=== PATIENT | male | born 1930 | race African-American/Black ===

== ENCOUNTER 2016-05-22 10:15 | Inpatient (IN) | payer MEDICARE, BC ==
[~2016-05-22] VITALS: Ht 167.6 cm; Wt 64.9 kg
[~2016-05-22 10:15] MED LIST: BECL8.7A6 INH; PROAIR INH; T3 PO; ZOLP10TA2 PO
[2016-05-22] MEDS ORDERED: LISI10TA5 PO (11:12)
[2016-05-22] MEDS ORDERED: METHYLPREDNISOLONE SOD SUCC 125 MG/2 ML VIAL IV STA (11:24)
[2016-05-22] MEDS ORDERED: DIPHENHYDRAMINE 50MG/ML VIAL IV ONE (11:30)
[2016-05-22] MEDS ORDERED: FAMOTIDINE 20MG/2ML VIAL IV ONE (11:30)
[2016-05-22 12:07] LABS: BASOPHILS % 0.4 % (0.0-2.0); EOSINOPHILS % 5.3 % (0.0-5.0); HEMATOCRIT. 24.6 % (42.0-52.0); HEMOGLOBIN. 8.3 g/dL (14.0-18.0); LYMPHOCYTES % 20.3 % (20.0-50.0); MEAN CORPUSCULAR HEMOGLOBIN 29.9 pg (28.0-32.0); MEAN CORPUSCULAR HGB CONC 33.6 g/dL (31.0-37.0); MEAN CORPUSCULAR VOLUME 88.9 fL (80.0-94.0); MEAN PLATELET VOLUME 6.4 fl (7.4-10.4); MONOCYTES % 10.2 % (2.0-8.0); NEUTROPHILS % 63.8 % (40.0-76.0); PLATELET 383 x1000/uL (130-400); RED BLOOD CELL COUNT 2.77 mill/uL (4.7-6.1); RED CELL DISTRIBUTION WIDTH 14.9 % (11.6-14.6); WHITE BLOOD COUNT 5.8 x1000/uL (4.5-11.0)
[2016-05-22 12:12] LABS: CHLORIDE 90 mEq/L (98-107); INDEX HEMOLYSI 1 (1-3); INDEX ICTERIC 1 (1-4); INDEX LIPEMIC 1 (1-3)
[2016-05-22 12:15] LABS: PROTHROMBIN TIME 10.6 sec
[2016-05-22 12:18] LABS: ANION GAP 14; CALCIUM 9.1 mg/dL (8.5-10.1); CARBON DIOXIDE 28 mEq/L (21-32); UREA NITROGEN BLOOD 15 mg/dL (7-21); eGFR > 60 mL/min (>60)
[2016-05-22 18:15] VITALS: BP 142/92
[2016-05-22] MEDS ORDERED: [UNRECOGNIZED DRUG - OTHER] (18:33)
[2016-05-22] MEDS ORDERED: [UNRECOGNIZED DRUG - OTHER] PO (18:34)
[2016-05-22] MEDS ORDERED: MAGNESIUM/ALUMINUM HYDROXIDE/SIMETHICONE 30ML UDC PO PRN (18:45)
[2016-05-22] MEDS ORDERED: ACETAMINOPHEN 325MG TABLET PO PRN (18:45)
[2016-05-22] MEDS ORDERED: CLONIDINE 0.1MG TABLET PO PRN (18:45)
[2016-05-22] MEDS ORDERED: ONDANSETRON HCL 4MG/2ML VIAL IV PRN (18:45)
[2016-05-22] MEDS ORDERED: DIPHENHYDRAMINE 50MG/ML VIAL IV PRN (18:45)
[2016-05-22 19:04] VITALS: BP 142/92
[2016-05-22 20:00] VITALS: BP 127/77
[2016-05-22] MEDS ORDERED: TRAMADOL 50MG TABLET PO PRN (20:15)
[2016-05-22] MEDS ORDERED: PROMETHAZINE/DEXTROMETHORPHAN 6.25-15MG/5ML BOTTLE 120ML PO PRN (20:15)
[2016-05-22] MEDS ORDERED: ZOLPIDEM TARTRATE 5MG TABLET PO ONE (20:15)
[2016-05-22] MEDS ORDERED: ALBUTEROL (0.083%) 2.5MG/3ML NEB HHN PRN (20:30)
[2016-05-22] MEDS ORDERED: ZOLPIDEM TARTRATE 5MG TABLET PO PRN (20:30)
[2016-05-22] MEDS: FAMOTIDINE 20MG/2ML VIAL IV SCH (21:42)
[2016-05-22] MEDS: SODIUM CHLORIDE 0.9% INJ 3ML FLUSH IVF SCH (21:42)
[2016-05-22] MEDS: METHYLPREDNISOLONE SOD SUCC 125 MG/2 ML VIAL IV SCH (21:42)
[2016-05-22] MEDS: ACETAMINOPHEN WITH CODEINE 300/30MG TABLET PO PRN (22:57)
[2016-05-23] VITALS: BP 114/76
[2016-05-23 04:00] VITALS: BP 133/80
[2016-05-23] MEDS: METHYLPREDNISOLONE SOD SUCC 125 MG/2 ML VIAL IV SCH (05:53)
[2016-05-23] MEDS: SODIUM CHLORIDE 0.9% INJ 3ML FLUSH IVF SCH (05:54)
[2016-05-23 07:56] VITALS: BP 136/79
[2016-05-23] MEDS ORDERED: AMLODIPINE 5MG TABLET PO SCH (09:00)
[2016-05-23] MEDS: FAMOTIDINE 20MG/2ML VIAL IV SCH (09:05)
[2016-05-23] MEDS: ACETAMINOPHEN WITH CODEINE 300/30MG TABLET PO PRN (09:08)
[2016-05-23 12:00] VITALS: BP 121/78
== END 2016-05-23 15:30 | disposition home or self-care (01) | DRG 916 ==
LOC: ER 11:49 → 6WST 13:31
PROVIDERS: ADMIT Internal Medicine; ATTEND Internal Medicine
DX: T78.3XXA Angioneurotic edema, initial encounter (principal); E87.1 Hypo-osmolality and hyponatremia; C85.10 Unspecified B-cell lymphoma, unspecified site; I10 Essential (primary) hypertension; D64.9 Anemia, unspecified; T46.4X5A Adverse effect of angiotensin-converting-enzyme inhibitors, initial encounter; Y92.89 Other specified places as the place of occurrence of the external cause; Z82.49 Family history of ischemic heart disease and other diseases of the circulatory system; Z79.899 Other long term (current) drug therapy; Z87.11 Personal history of peptic ulcer disease
CPT/HCPCS: 36415; 71010; 80048; 85025; 85610; 85730; 93005; 96374; 96375; 99285; J1200; J2930; J3490

== ENCOUNTER 2016-10-17 08:48 | Inpatient (IN) | payer MEDICARE, BC ==
[~2016-10-17] VITALS: Ht 160 cm; Wt 63.5 kg
[~2016-10-17 08:48] MED LIST changes: +ACET-3161 PO; +AMLO5TAB4 PO; -BECL8.7A6 INH; +FERR-63 PO; +MULT-1146 PO; -PROAIR INH; -T3 PO; -ZOLP10TA2 PO; +[UNRECOGNIZED DRUG - OTHER] PO
[2016-10-17] MEDS ORDERED: ONDANSETRON HCL 4MG/2ML VIAL IV STA (09:25)
[2016-10-17] MEDS ORDERED: SODIUM CHLORIDE 0.9% 1,000 ML IV ONE (09:25)
[2016-10-17] MEDS ORDERED: FAMOTIDINE 20MG/2ML VIAL IV ONE (09:30)
[2016-10-17 09:49] LABS: HEMATOCRIT. 33.1 % (42.0-52.0); HEMOGLOBIN. 10.4 g/dL (14.0-18.0); MEAN CORPUSCULAR HEMOGLOBIN 26.7 pg (28.0-32.0); MEAN CORPUSCULAR VOLUME 85.3 fL (80.0-94.0); MEAN PLATELET VOLUME 8.3 fl (7.4-10.4); PLATELET 536 x1000/uL (130-400); RED BLOOD CELL COUNT 3.87 mill/uL (4.7-6.1); RED CELL DISTRIBUTION WIDTH 17.3 % (11.6-14.6)
[2016-10-17 10:01] LABS: CARBON DIOXIDE 33 mEq/L (21-32); CHLORIDE 99 mEq/L (98-107)
[2016-10-17 10:02] LABS: INR 1.2; PROTHROMBIN TIME 12.8 sec
[2016-10-17] MEDS ORDERED: SODIUM CHLORIDE 0.9% 10ML VIAL ONE (10:23)
[2016-10-17 11:01] LABS: PLATELET ESTIMATE INCREASED
[2016-10-17] MEDS ORDERED: SODIUM CHLORIDE 0.45% 1,000 ML IV SCH (15:15)
[2016-10-17] MEDS ORDERED: MIDAZOLAM HCL 2 MG/2 ML VIAL IV PRN (17:12)
[2016-10-17] MEDS ORDERED: FENTANYL CITRATE/PF 50MCG/ML 2ML VIAL ONE (17:13)
[2016-10-17] MEDS ORDERED: MIDAZOLAM HCL 5 MG/5 ML VIAL ONE ×2 (17:13→17:14)
[2016-10-17] MEDS ORDERED: SIMETHICONE 40 MG/0.6 ML 30ML ONE (17:13)
[2016-10-17 20:00] VITALS: BP 121/83
[2016-10-17] MEDS ORDERED: CLONIDINE 0.1MG TABLET PO PRN (20:45)
[2016-10-17] MEDS ORDERED: IPRATROPIUM/ALBUTEROL 0.5-3(2.5)MG/3ML NEB INH PRN (20:45)
[2016-10-17] MEDS ORDERED: ONDANSETRON HCL 4MG/2ML VIAL IV PRN (20:45)
[2016-10-17] MEDS ORDERED: DIPHENHYDRAMINE 50MG/ML VIAL IV PRN (20:45)
[2016-10-17] MEDS ORDERED: MAGNESIUM/ALUMINUM HYDROXIDE/SIMETHICONE 30ML UDC PO PRN (20:45)
[2016-10-17] MEDS ORDERED: ACETAMINOPHEN WITH CODEINE 300/30MG TABLET PO PRN (20:45)
[2016-10-17] MEDS ORDERED: PANTOPRAZOLE SODIUM 40 MG/VIAL IV SCH ×2 (21:00)
[2016-10-17] MEDS ORDERED: DIATR MEGLU/DIATRIZOATE SOLN 30ML PO SCH (21:28)
[2016-10-17] MEDS: SUCRALFATE 1G TABLET PO SCH (22:20)
[2016-10-17] MEDS: SODIUM CHLORIDE 0.9% 1,000 ML IV SCH (22:20)
[2016-10-18 04:00] VITALS: BP 114/80
[2016-10-18 06:25] LABS: HEMATOCRIT. 28.6 % (42.0-52.0); HEMOGLOBIN. 8.9 g/dL (14.0-18.0); MEAN CORPUSCULAR HEMOGLOBIN 26.8 pg (28.0-32.0); MEAN CORPUSCULAR VOLUME 85.6 fL (80.0-94.0); MEAN PLATELET VOLUME 8.3 fl (7.4-10.4); PLATELET 395 x1000/uL (130-400); RED BLOOD CELL COUNT 3.34 mill/uL (4.7-6.1); RED CELL DISTRIBUTION WIDTH 17.2 % (11.6-14.6)
[2016-10-18] MEDS: SUCRALFATE 1G TABLET PO SCH ×4 (06:35→20:20)
[2016-10-18 08:00] VITALS: BP 111/78
[2016-10-18] MEDS: FERROUS SULFATE 325MG TABLET PO SCH (09:21)
[2016-10-18] MEDS: PANTOPRAZOLE SODIUM 40 MG/VIAL IV SCH (09:21)
[2016-10-18] MEDS: AMLODIPINE 5MG TABLET PO SCH (09:22)
[2016-10-18] MEDS ORDERED: DIATR MEGLU/DIATRIZOATE SOLN 30ML PO SCH (11:00)
[2016-10-18] MEDS ORDERED: IOHEXOL-300 100 ML BOTTLE ONE (13:59)
[2016-10-18] MEDS ORDERED: SODIUM CHLORIDE 0.9% 10ML VIAL ONE (13:59)
[2016-10-18] MEDS: SODIUM CHLORIDE 0.9% 1,000 ML IV SCH (18:05)
[2016-10-18] MEDS ORDERED: SORBITOL 70% SOLN 30ML PO NR (19:30)
[2016-10-18] MEDS ORDERED: NA PHOS,M-B/NA PHOS,DI-BA ENEMA 118ML PR NR (19:30)
[2016-10-18 20:00] VITALS: BP 111/70
[2016-10-18 20:43] LABS: PLATELET ESTIMATE NORMAL
[2016-10-19] VITALS (7 sets, daily range): BP systolic 95–113; BP diastolic 61–71
[2016-10-19 02:34] LABS: CLARITY URINE CLOUDY (CLEAR); COLOR URINE DARK YELLOW (YELLOW); GLUCOSE URINE NEGATIVE (NEGATIVE); KETONES URINE NEGATIVE (NEGATIVE); LEUKOCYTE ESTERASE URINE 1+ (NEGATIVE); NITRITE URINE NEGATIVE (NEGATIVE); OCCULT BLOOD URINE 2+ (NEGATIVE); PROTEIN URINE 1+ (NEGATIVE); SPECIFIC GRAVITY URINE 1.033 (1.005-1.030)
[2016-10-19] MEDS: SUCRALFATE 1G TABLET PO SCH ×3 (05:46→17:04)
[2016-10-19] MEDS: FERROUS SULFATE 325MG TABLET PO SCH (08:55)
[2016-10-19] MEDS: PANTOPRAZOLE SODIUM 40 MG/VIAL IV SCH (08:55)
[2016-10-19] MEDS: AMLODIPINE 5MG TABLET PO SCH (08:56)
[2016-10-19] MEDS: POLYETHYLENE GLYCOL 3350 (17GM) 1 DOSE PACK PO SCH (08:56)
[2016-10-19 12:41] LABS: BASOPHILS % 0.3 % (0.0-2.0); EOSINOPHILS % 1.3 % (0.0-5.0); HEMATOCRIT. 26.2 % (42.0-52.0); HEMOGLOBIN. 8.2 g/dL (14.0-18.0); LYMPHOCYTES % 10.3 % (20.0-50.0); MEAN CORPUSCULAR HEMOGLOBIN 26.6 pg (28.0-32.0); MEAN CORPUSCULAR VOLUME 85.1 fL (80.0-94.0); MEAN PLATELET VOLUME 8.4 fl (7.4-10.4); MONOCYTES % 5.5 % (2.0-8.0); NEUTROPHILS % 82.6 % (40.0-76.0); PLATELET 423 x1000/uL (130-400); RED BLOOD CELL COUNT 3.08 mill/uL (4.7-6.1); RED CELL DISTRIBUTION WIDTH 17.5 % (11.6-14.6)
[2016-10-19 13:05] LABS: CARBON DIOXIDE 29 mEq/L (21-32); CHLORIDE 102 mEq/L (98-107); PHOSPHORUS 2.9 mg/dL (2.5-4.9)
[2016-10-19] MEDS ORDERED: LIDOCAINE HCL 1% 20ML VIAL (Pyxis) INJ ONE (14:26)
[2016-10-19] MEDS ORDERED: SODIUM BICARBONATE 4% (2.4MEQ) 5ML VIAL IV ONE (14:26)
[2016-10-19] MEDS: SODIUM CHLORIDE 0.9% 1,000 ML IV SCH (14:48)
[2016-10-19] MEDS: SUCRALFATE 1 G/10 ML UDC PO SCH (21:32)
[2016-10-19] MEDS: ACETAMINOPHEN 325MG TABLET PO PRN (23:44)
[2016-10-20] VITALS (7 sets, daily range): BP systolic 90–124; BP diastolic 61–80
[2016-10-20] MEDS: SUCRALFATE 1 G/10 ML UDC PO SCH ×4 (06:35→21:34)
[2016-10-20] MEDS: PANTOPRAZOLE SODIUM 40 MG/VIAL IV SCH (10:02)
[2016-10-20] MEDS: FERROUS SULFATE 325MG TABLET PO SCH (10:02)
[2016-10-20] MEDS: AMLODIPINE 5MG TABLET PO SCH (10:03)
[2016-10-20] MEDS: POLYETHYLENE GLYCOL 3350 (17GM) 1 DOSE PACK PO SCH (10:03)
[2016-10-20 13:22] LABS: BASOPHILS % 0.1 % (0.0-2.0); EOSINOPHILS % 0.5 % (0.0-5.0); HEMATOCRIT. 31.2 % (42.0-52.0); HEMOGLOBIN. 9.9 g/dL (14.0-18.0); LYMPHOCYTES % 9.8 % (20.0-50.0); MEAN CORPUSCULAR HEMOGLOBIN 27.2 pg (28.0-32.0); MEAN CORPUSCULAR VOLUME 85.6 fL (80.0-94.0); MONOCYTES % 5.7 % (2.0-8.0); NEUTROPHILS % 83.9 % (40.0-76.0); PLATELET 404 x1000/uL (130-400); RED BLOOD CELL COUNT 3.65 mill/uL (4.7-6.1); RED CELL DISTRIBUTION WIDTH 16.7 % (11.6-14.6)
[2016-10-20 13:56] LABS: TOTAL IRON BINDING CAPACITY 197 ug/dL (250-450)
[2016-10-20] MEDS ORDERED: ALPRAZOLAM 0.25 MG TABLET PO PRN (18:30)
[2016-10-21] VITALS (28 sets, daily range): BP systolic -17–165; BP diastolic -18–88
[2016-10-21] MEDS: SUCRALFATE 1 G/10 ML UDC PO SCH ×4 (05:57→22:05)
[2016-10-21 06:05] LABS: INR 1.2; PROTHROMBIN TIME 12.8 sec
[2016-10-21 06:09] LABS: BASOPHILS % 0.2 % (0.0-2.0); EOSINOPHILS % 0.5 % (0.0-5.0); HEMATOCRIT. 28.5 % (42.0-52.0); HEMOGLOBIN. 8.9 g/dL (14.0-18.0); LYMPHOCYTES % 10.6 % (20.0-50.0); MEAN CORPUSCULAR HEMOGLOBIN 26.6 pg (28.0-32.0); MEAN CORPUSCULAR VOLUME 85.3 fL (80.0-94.0); MEAN PLATELET VOLUME 8.4 fl (7.4-10.4); MONOCYTES % 6.7 % (2.0-8.0); PLATELET 421 x1000/uL (130-400); RED BLOOD CELL COUNT 3.35 mill/uL (4.7-6.1); RED CELL DISTRIBUTION WIDTH 16.8 % (11.6-14.6)
[2016-10-21 06:35] LABS: CHLORIDE 105 mEq/L (98-107)
[2016-10-21 06:49] LABS: CARBON DIOXIDE 33 mEq/L (21-32)
[2016-10-21] MEDS ORDERED: FLUCONAZOLE 100MG/50ML PREMIX IV SCH (09:00)
[2016-10-21] MEDS: AMLODIPINE 5MG TABLET PO SCH (09:00)
[2016-10-21] MEDS: POLYETHYLENE GLYCOL 3350 (17GM) 1 DOSE PACK PO SCH (10:29)
[2016-10-21] MEDS: FERROUS SULFATE 325MG TABLET PO SCH (10:29)
[2016-10-21] MEDS: PANTOPRAZOLE SODIUM 40 MG/VIAL IV SCH (10:29)
[2016-10-21] MEDS ORDERED: POTASSIUM CHLORIDE INJ 40 MEQ in DEXT 5% WATER 500 ML IV NR (11:00)
[2016-10-21] MEDS ORDERED: FLUCONAZOLE 200 MG/100ML BAG 100 ML IV SCH (12:00)
[2016-10-21] MEDS ORDERED: SKIN ADHESIVE 0.7 GM EA TOP ONE (12:03)
[2016-10-21] MEDS ORDERED: BUPIVACAINE/EPINEPH/PF 0.25%/0.0005 10ML ONE (12:04)
[2016-10-21] MEDS ORDERED: NORMAL SALINE 0.9% 10 ML SYR ONE (12:04)
[2016-10-21] MEDS ORDERED: BACITRACIN 50,000 UNITS/VIAL ONE (12:04)
[2016-10-21] MEDS ORDERED: ETOMIDATE 2MG/ML 10ML VIAL IV ONE ×2 (13:33→15:37)
[2016-10-21] MEDS ORDERED: ONDANSETRON HCL 4MG/2ML VIAL ONE (13:34)
[2016-10-21] MEDS ORDERED: FENTANYL CITRATE/PF 50MCG/ML 2ML VIAL IV PRN (13:45)
[2016-10-21] MEDS ORDERED: ATROPINE SULFATE 0.4MG/ML VIAL IV PRN (13:45)
[2016-10-21] MEDS ORDERED: HYDROMORPHONE HCL/PF 2MG/ML CPJ IV PRN (13:45)
[2016-10-21] MEDS ORDERED: ALBUMIN HUMAN 12.5G/250ML (5%) IV ONE (15:08)
[2016-10-21] MEDS ORDERED: DEXAMETHASONE 4MG/ML 1ML VIAL ONE (15:36)
[2016-10-21] MEDS ORDERED: ROCURONIUM BROMIDE 10MG/ML VIAL 5ML IV ONE (15:36)
[2016-10-21] MEDS ORDERED: CEFAZOLIN SODIUM 1000MG/VIAL ONE (15:36)
[2016-10-21] MEDS ORDERED: LIDOCAINE HCL 1% 20ML VIAL (Pyxis) INJ ONE (15:36)
[2016-10-21 17:08] LABS: BG BASE EXCESS 3.9 mmol/L (-2.0-2.0); BG CARBOXYHEMOGLOBIN 0.3 % (0.5-1.5); BG DEOXYHEMOGLOBIN 1.1 % (0.0-5.0); BG FRACTION INSPIRED OXYGEN 48; BG HCO3 ACT 28.8 mmol/L (22.0-26.0); BG METHEMOGLOBIN 0.2 % (0.0-1.5); BG OXYGEN SATURATION 98.9 % (92.0-98.5); BG OXYHEMOGLOBIN 98.4 % (94.0-97.0); BG PCO2 45.1 mmHg (35.0-45.0); BG PH 7.423 (7.350-7.450); BG PO2 189.2 mmHg (75.0-100.0); BG SAMPLE SITE A-LINE; BG TOTAL HEMOGLOBIN 10.5 g/dL (12.0-18.0); BG VENT MODE MASK - SIMPLE
[2016-10-21] MEDS: DEXT 5%/0.45% NACL 1000ML 1,000 ML IV SCH (18:34)
[2016-10-22] VITALS (31 sets, daily range): BP systolic 87–126; BP diastolic 61–82
[2016-10-22 06:13] LABS: BASOPHILS % 0.1 % (0.0-2.0); HEMATOCRIT. 33.2 % (42.0-52.0); HEMOGLOBIN. 10.3 g/dL (14.0-18.0); LYMPHOCYTES % 7.1 % (20.0-50.0); MEAN CORPUSCULAR HEMOGLOBIN 27.1 pg (28.0-32.0); MEAN PLATELET VOLUME 8.2 fl (7.4-10.4); MONOCYTES % 7.1 % (2.0-8.0); NEUTROPHILS % 85.7 % (40.0-76.0); PLATELET 375 x1000/uL (130-400); RED BLOOD CELL COUNT 3.82 mill/uL (4.7-6.1); RED CELL DISTRIBUTION WIDTH 17.1 % (11.6-14.6)
[2016-10-22 07:17] LABS: CARBON DIOXIDE 34 mEq/L (21-32); CHLORIDE 104 mEq/L (98-107)
[2016-10-22] MEDS: SUCRALFATE 1 G/10 ML UDC PO SCH ×4 (08:28→20:17)
[2016-10-22] MEDS: PANTOPRAZOLE SODIUM 40 MG/VIAL IV SCH (08:28)
[2016-10-22] MEDS: POLYETHYLENE GLYCOL 3350 (17GM) 1 DOSE PACK PO SCH (08:28)
[2016-10-22] MEDS: FERROUS SULFATE 325MG TABLET PO SCH (08:28)
[2016-10-22] MEDS: DEXT 5%/0.45% NACL 1000ML 1,000 ML IV SCH (08:29)
[2016-10-22] MEDS: AMLODIPINE 5MG TABLET PO SCH (09:00)
[2016-10-22] MEDS: FLUCONAZOLE 100 MG/50ML BAG 50 ML IV SCH (09:21)
[2016-10-23] VITALS (21 sets, daily range): BP systolic 93–126; BP diastolic 52–74
[2016-10-23] MEDS: DEXT 5%/0.45% NACL 1000ML 1,000 ML IV SCH ×2 (01:47→20:53)
[2016-10-23 06:18] LABS: CARBON DIOXIDE 31 mEq/L (21-32); CHLORIDE 105 mEq/L (98-107)
[2016-10-23 07:30] LABS: BASOPHILS % 0.2 % (0.0-2.0); EOSINOPHILS % 0.4 % (0.0-5.0); HEMATOCRIT. 29.4 % (42.0-52.0); HEMOGLOBIN. 9.1 g/dL (14.0-18.0); LYMPHOCYTES % 13.3 % (20.0-50.0); MEAN CORPUSCULAR HEMOGLOBIN 27.1 pg (28.0-32.0); MEAN CORPUSCULAR VOLUME 87.1 fL (80.0-94.0); MEAN PLATELET VOLUME 8.5 fl (7.4-10.4); MONOCYTES % 7.1 % (2.0-8.0); PLATELET 356 x1000/uL (130-400); RED BLOOD CELL COUNT 3.37 mill/uL (4.7-6.1); RED CELL DISTRIBUTION WIDTH 17.1 % (11.6-14.6)
[2016-10-23] MEDS: AMLODIPINE 5MG TABLET PO SCH (08:03)
[2016-10-23] MEDS: FERROUS SULFATE 325MG TABLET PO SCH (08:03)
[2016-10-23] MEDS: PANTOPRAZOLE SODIUM 40 MG/VIAL IV SCH (08:03)
[2016-10-23] MEDS: POLYETHYLENE GLYCOL 3350 (17GM) 1 DOSE PACK PO SCH (08:03)
[2016-10-23] MEDS: SUCRALFATE 1 G/10 ML UDC PO SCH ×4 (08:03→20:51)
[2016-10-23] MEDS: FLUCONAZOLE 100 MG/50ML BAG 50 ML IV SCH (08:05)
[2016-10-23] MEDS ORDERED: POTASSIUM CHLORIDE 20MEQ/PACKET PO SCH (09:00)
[2016-10-23] MEDS: ACETAMINOPHEN 325MG TABLET PO PRN (10:33)
[2016-10-23] MEDS ORDERED: ACETAMINOPHEN WITH CODEINE 300/30MG TABLET PO PRN (15:37)
[2016-10-24] VITALS (12 sets, daily range): BP systolic 107–153; BP diastolic 59–82
[2016-10-24] MEDS: SUCRALFATE 1 G/10 ML UDC PO SCH ×4 (06:10→22:03)
[2016-10-24] MEDS: FLUCONAZOLE 100 MG/50ML BAG 50 ML IV SCH (08:05)
[2016-10-24] MEDS: AMLODIPINE 5MG TABLET PO SCH (08:05)
[2016-10-24] MEDS: PANTOPRAZOLE SODIUM 40 MG/VIAL IV SCH (08:05)
[2016-10-24] MEDS: POLYETHYLENE GLYCOL 3350 (17GM) 1 DOSE PACK PO SCH (08:06)
[2016-10-24] MEDS: FERROUS SULFATE 325MG TABLET PO SCH (08:06)
[2016-10-24] MEDS: DEXT 5%/0.45% NACL 1000ML 1,000 ML IV SCH (11:23)
[2016-10-24] MEDS: OMEPRAZOLE 20MG CAPSULE EXTENDED RELEASE PO SCH (22:03)
[2016-10-25] VITALS (9 sets, daily range): BP systolic 101–129; BP diastolic 62–75
[2016-10-25] MEDS: OMEPRAZOLE 20MG CAPSULE EXTENDED RELEASE PO SCH (06:50)
[2016-10-25] MEDS: SUCRALFATE 1 G/10 ML UDC PO SCH ×2 (06:50→13:44)
[2016-10-25] MEDS: AMLODIPINE 5MG TABLET PO SCH (08:31)
[2016-10-25] MEDS: FERROUS SULFATE 325MG TABLET PO SCH (08:31)
[2016-10-25] MEDS: POLYETHYLENE GLYCOL 3350 (17GM) 1 DOSE PACK PO SCH (08:31)
[2016-10-25] MEDS ORDERED: FLUCONAZOLE 100MG TABLET PO SCH (09:00)
== END 2016-10-25 14:23 | DRG 981 ==
LOC: ER 08:48 → 5WST 11:00 → EDBEDREQ 11:02 → EDBEDREQTM 11:02 → ENRESERV 16:49 → ER 17:22 → CVICU 10-21 16:43 → 3WST 10-23 18:11
PROVIDERS: ADMIT Internal Medicine; ATTEND Internal Medicine
PROC: 0DB58ZX Excision of Esophagus, Via Natural or Artificial Opening Endoscopic, Diagnostic (ICD-10-PCS; principal; 2016-10-17 17:00)
PROC: 30233N1 Transfusion of Nonautologous Red Blood Cells into Peripheral Vein, Percutaneous Approach (ICD-10-PCS; 2016-10-19)
PROC: 0J983ZX Drainage of Abdomen Subcutaneous Tissue and Fascia, Percutaneous Approach, Diagnostic (ICD-10-PCS; 2016-10-19)
PROC: 0W9B3ZX Drainage of Left Pleural Cavity, Percutaneous Approach, Diagnostic (ICD-10-PCS; 2016-10-19)
PROC: 0BJL4ZZ Inspection of Left Lung, Percutaneous Endoscopic Approach (ICD-10-PCS; 2016-10-21)
PROC: 3E0L3GC Introduction of Other Therapeutic Substance into Pleural Cavity, Percutaneous Approach (ICD-10-PCS; 2016-10-21)
PROC: 0W9B30Z Drainage of Left Pleural Cavity with Drainage Device, Percutaneous Approach (ICD-10-PCS; 2016-10-21)
DX: K22.11 Ulcer of esophagus with bleeding (principal); E43 Unspecified severe protein-calorie malnutrition; J90 Pleural effusion, not elsewhere classified; C85.10 Unspecified B-cell lymphoma, unspecified site; C34.92 Malignant neoplasm of unspecified part of left bronchus or lung; B37.81 Candidal esophagitis; D63.8 Anemia in other chronic diseases classified elsewhere; I10 Essential (primary) hypertension; K56.41 Fecal impaction; J44.9 Chronic obstructive pulmonary disease, unspecified; Z60.2 Problems related to living alone; N13.9 Obstructive and reflux uropathy, unspecified; Z87.11 Personal history of peptic ulcer disease; Z92.21 Personal history of antineoplastic chemotherapy; Z79.899 Other long term (current) drug therapy; Z85.118 Personal history of other malignant neoplasm of bronchus and lung; Z68.24 Body mass index [BMI] 24.0-24.9, adult
CPT/HCPCS: 20611; 32555; 36415; 36600; 71010; 74177; 80048; 80053; 81001; 82375; 82805; 82945; 82962; 83540; 83550; 83615; 83690; 83735; 84100; 84157; 85025; 85610; 86850; 86900; 86920; 87070; 87075; 87086; 87116; 87205; 88108; 88305; 88312; 89050; 93005; 96361; 96374; 96375; 97162; 97530; 99285; A4216; A6261; A7042; C1729; C1751; C1769; C9113; J0171; J0690; J1100; J1170; J1450; J2250; J2405; J3010; J3480; J3490; J7030; J7040; J7050; J7060; P9016; P9041; Q9963; Q9967; A4315

== ENCOUNTER 2016-12-08 17:50 | Inpatient (IN) | payer MEDICARE, BC ==
[~2016-12-08] VITALS: Ht 165.1 cm; Wt 69.4 kg
[~2016-12-08 17:50] MED LIST changes: +ALBU2.5V13 IH; +ATROV IH; +CLON0.1T PO; +FLUC100T42 PO; +NALOXONE; +OMEP20CA10 PO; +SUCR1ORA PO; +[UNRECOGNIZED DRUG - OTHER]
[2016-12-08] MEDS ORDERED: SODIUM CHLORIDE 0.9% 500 ML IV ONE (19:03)
[2016-12-08 19:38] LABS: MEAN CORPUSCULAR HEMOGLOBIN 29.9 pg (28.0-32.0); MEAN CORPUSCULAR VOLUME 90.7 fL (80.0-94.0); MEAN PLATELET VOLUME 9.3 fl (7.4-10.4); PLATELET 66 x1000/uL (130-400); RED CELL DISTRIBUTION WIDTH 14.9 % (11.6-14.6)
[2016-12-08 19:40] LABS: INR 1.5
[2016-12-08 19:42] LABS: CARBON DIOXIDE 32 mEq/L (21-32); CHLORIDE 99 mEq/L (98-107)
[2016-12-08 19:49] LABS: TROPONIN I < 0.02 ng/mL (0.00-0.04)
[2016-12-08 19:54] LABS: HEMOGLOBIN. 6.3 g/dL (14.0-18.0)
[2016-12-08 20:31] LABS: PLATELET ESTIMATE DECREASED
[2016-12-08 20:48] LABS: CLARITY URINE CLOUDY (CLEAR); COLOR URINE DARK YELLOW (YELLOW); GLUCOSE URINE NEGATIVE (NEGATIVE); KETONES URINE NEGATIVE (NEGATIVE); LEUKOCYTE ESTERASE URINE 3+ (NEGATIVE); NITRITE URINE NEGATIVE (NEGATIVE); OCCULT BLOOD URINE 1+ (NEGATIVE); PROTEIN URINE 1+ (NEGATIVE); SPECIFIC GRAVITY URINE 1.015 (1.005-1.030)
[2016-12-08] MEDS ORDERED: CEFTRIAXONE 1 G PREMIX 50 ML IV ONE (21:00)
[2016-12-09] VITALS (8 sets, daily range): BP systolic 109–126; BP diastolic 69–76
[2016-12-09 03:31] LABS: HEMATOCRIT 22.9 % (42.0-52.0); HEMOGLOBIN 7.5 g/dL (14.0-18.0); MEAN CORPUSCULAR HEMOGLOBIN 29.5 pg (28.0-32.0); MEAN CORPUSCULAR VOLUME 89.6 fL (80.0-94.0); PLATELET 60 x1000/uL (130-400); RED BLOOD CELL COUNT 2.56 mill/uL (4.7-6.1); RED CELL DISTRIBUTION WIDTH 16.2 % (11.6-14.6)
[2016-12-09 03:47] LABS: CARBON DIOXIDE 30 mEq/L (21-32); CHLORIDE 99 mEq/L (98-107); TROPONIN I < 0.02 ng/mL (0.00-0.04)
[2016-12-09] MEDS: PANTOPRAZOLE SODIUM 40 MG/VIAL IV SCH (18:17)
[2016-12-09] MEDS: CEFTRIAXONE 1 G PREMIX 50 ML IV SCH (22:19)
[2016-12-10] VITALS: BP 111/57
[2016-12-10 04:00] VITALS: BP 114/69
[2016-12-10 07:43] VITALS: BP 117/66
[2016-12-10] MEDS: PANTOPRAZOLE SODIUM 40 MG/VIAL IV SCH (08:38)
[2016-12-10] MEDS ORDERED: SIMETHICONE 40 MG/0.6 ML 30ML ONE (09:07)
[2016-12-10] MEDS ORDERED: SODIUM CHLORIDE 0.9% 10ML VIAL ONE (09:07)
[2016-12-10 09:34] LABS: HEMATOCRIT 27.6 % (42.0-52.0); HEMOGLOBIN 9.1 g/dL (14.0-18.0)
[2016-12-10] MEDS ORDERED: HYDR-523 PO (11:58)
[2016-12-10 12:03] VITALS: BP 132/72
[2016-12-10 15:35] VITALS: BP 107/59
[2016-12-10] MEDS ORDERED: NA PHOS,M-B/NA PHOS,DI-BA ENEMA 118ML PR PRN (20:00)
[2016-12-10] MEDS ORDERED: MAGNESIUM/ALUMINUM HYDROXIDE/SIMETHICONE 30ML UDC PO PRN (20:00)
[2016-12-10] MEDS ORDERED: HYDROCODONE/ACETAMINOPHEN 5/325MG TABLET PO PRN (20:00)
[2016-12-10] MEDS ORDERED: ACETAMINOPHEN 325MG TABLET PO PRN (20:00)
[2016-12-10] MEDS ORDERED: ACETAMINOPHEN 650MG SUPP PR PRN (20:00)
[2016-12-10] MEDS ORDERED: ACETAMINOPHEN 650MG/20.3ML UDC GT PRN (20:00)
[2016-12-10] MEDS ORDERED: IPRATROPIUM/ALBUTEROL 0.5-3(2.5)MG/3ML NEB INH PRN (20:00)
[2016-12-10] MEDS ORDERED: CLONIDINE 0.1MG TABLET PO PRN (20:00)
[2016-12-10] MEDS ORDERED: DOCUSATE SODIUM 100MG CAPSULE PO PRN (20:00)
[2016-12-10] MEDS ORDERED: ONDANSETRON HCL 4MG/2ML VIAL IV PRN (20:00)
[2016-12-10] MEDS ORDERED: GUAIFENESIN 200MG/10ML SUGAR FREE UDC PO PRN (20:00)
[2016-12-10] MEDS ORDERED: ACETAMINOPHEN WITH CODEINE 300/30MG TABLET PO PRN (20:00)
[2016-12-10] MEDS ORDERED: LORAZEPAM 0.5MG TABLET PO PRN (20:00)
[2016-12-10] MEDS ORDERED: DIPHENHYDRAMINE 50MG/ML VIAL IV PRN (20:00)
[2016-12-10 20:43] VITALS: BP 106/62
[2016-12-10 20:49] LABS: TOTAL IRON BINDING CAPACITY 65 ug/dL (250-450)
[2016-12-10 20:52] LABS: BASOPHILS % 0.2 % (0.0-2.0); EOSINOPHILS % 0.2 % (0.0-5.0); HEMATOCRIT. 24.8 % (42.0-52.0); HEMOGLOBIN. 8.3 g/dL (14.0-18.0); LYMPHOCYTES % 23.8 % (20.0-50.0); MEAN CORPUSCULAR VOLUME 89.8 fL (80.0-94.0); MONOCYTES % 10.2 % (2.0-8.0); NEUTROPHILS % 65.6 % (40.0-76.0); PLATELET 58 x1000/uL (130-400); RED BLOOD CELL COUNT 2.76 mill/uL (4.7-6.1); RED CELL DISTRIBUTION WIDTH 15.7 % (11.6-14.6)
[2016-12-10 20:58] LABS: INR 1.7; PROTHROMBIN TIME 17.3 sec (9.4-11.6)
[2016-12-10 21:03] LABS: CHLORIDE 100 mEq/L (98-107)
[2016-12-10 21:11] LABS: CARBON DIOXIDE 31 mEq/L (21-32)
[2016-12-10 21:26] LABS: VITAMIN B12 SERUM > 2000 pg/mL (211-911)
[2016-12-10] MEDS ORDERED: MAGNESIUM CITRATE 300ML SOLUTION PO SCH (21:30)
[2016-12-10] MEDS: CEFTRIAXONE 1 G PREMIX 50 ML IV SCH (21:52)
[2016-12-10] MEDS: SUCRALFATE 1 G/10 ML UDC PO SCH (21:52)
[2016-12-10] MEDS: SODIUM CHLORIDE 0.9% INJ 3ML FLUSH IVF SCH (21:52)
[2016-12-11] VITALS (13 sets, daily range): BP systolic 90–117; BP diastolic 55–71
[2016-12-11] MEDS: SODIUM CHLORIDE 0.9% INJ 3ML FLUSH IVF SCH ×3 (05:41→21:58)
[2016-12-11 07:44] LABS: CLARITY URINE CLOUDY (CLEAR); COLOR URINE ORANGE (YELLOW); GLUCOSE URINE NEGATIVE (NEGATIVE); KETONES URINE TRACE (NEGATIVE); LEUKOCYTE ESTERASE URINE 2+ (NEGATIVE); NITRITE URINE POSITIVE (NEGATIVE); OCCULT BLOOD URINE 3+ (NEGATIVE); PH URINE 5.5 (4.5-8.0); PROTEIN URINE 1+ (NEGATIVE); SPECIFIC GRAVITY URINE 1.024 (1.005-1.030)
[2016-12-11 08:12] LABS: BASOPHILS % 0.4 % (0.0-2.0); EOSINOPHILS % 0.2 % (0.0-5.0); HEMATOCRIT. 24.9 % (42.0-52.0); HEMOGLOBIN. 8.3 g/dL (14.0-18.0); LYMPHOCYTES % 29.3 % (20.0-50.0); MEAN CORPUSCULAR HEMOGLOBIN 30.2 pg (28.0-32.0); MEAN CORPUSCULAR VOLUME 90.1 fL (80.0-94.0); NEUTROPHILS % 60.1 % (40.0-76.0); PLATELET 55 x1000/uL (130-400); RED BLOOD CELL COUNT 2.76 mill/uL (4.7-6.1); RED CELL DISTRIBUTION WIDTH 16.2 % (11.6-14.6)
[2016-12-11 08:15] LABS: *AMPHETAMINES SCREEN URINE NEGATIVE (NEGATIVE); *BARBITURATES SCREEN URINE NEGATIVE (NEGATIVE); *BENZODIAZEPINES SCREEN URINE NEGATIVE (NEGATIVE); *COCAINE SCREEN URINE NEGATIVE (NEGATIVE); CANNABINOID URINE SCREEN NEGATIVE (NEGATIVE); METHADONE URINE SCREEN NEGATIVE (NEGATIVE); OPIATES URINE SCREEN NEGATIVE (NEGATIVE); PHENCYCLIDINE URINE SCREEN NEGATIVE (NEGATIVE)
[2016-12-11] MEDS: SUCRALFATE 1 G/10 ML UDC PO SCH ×4 (08:31→21:09)
[2016-12-11] MEDS: PANTOPRAZOLE SODIUM 40 MG/VIAL IV SCH (08:31)
[2016-12-11] MEDS: OMEPRAZOLE 20MG CAPSULE EXTENDED RELEASE PO SCH (08:32)
[2016-12-11] MEDS: AMLODIPINE 5MG TABLET PO SCH (08:32)
[2016-12-11 08:35] LABS: CARBON DIOXIDE 31 mEq/L (21-32); CHLORIDE 101 mEq/L (98-107); HDL CHOLESTEROL 10 mg/dL (40-59); LDL CHOLESTEROL 57 mg/dL (5-100)
[2016-12-11] MEDS ORDERED: FERROUS SULFATE 325MG TABLET PO SCH (09:00)
[2016-12-11] MEDS: CLONIDINE 0.1MG TABLET PO SCH ×3 (10:30→16:16)
[2016-12-11] MEDS: LEVOFLOXACIN 500MG TABLET PO SCH (10:31)
[2016-12-11] MEDS ORDERED: PHYTONADIONE 10MG/ML AMP SUBCUT NR (17:45)
[2016-12-11] MEDS ORDERED: POTASSIUM CHLORIDE 20MEQ TABLET SR PO NR ×2 (17:45→21:30)
[2016-12-11] MEDS: FOLIC ACID 1MG TABLET PO SCH (18:37)
[2016-12-11] MEDS: DEXT 5%/0.9% NACL 1,000 ML IV SCH (18:41)
[2016-12-11] MEDS ORDERED: IRON SUCROSE COMPLEX 100 MG/5 ML ML IV SCH (20:00)
[2016-12-11] MEDS: CEFTRIAXONE 1 G PREMIX 50 ML IV SCH (21:31)
[2016-12-12] VITALS (11 sets, daily range): BP systolic 105–139; BP diastolic 58–79
[2016-12-12 06:32] LABS: INR 1.5; PARTIAL THROMBOPLASTIN TIME 42.4 sec (23.4-31.0); PROTHROMBIN TIME 15.4 sec (9.4-11.6)
[2016-12-12 06:42] LABS: BASOPHILS % 0.1 % (0.0-2.0); EOSINOPHILS % 0.2 % (0.0-5.0); HEMATOCRIT. 25.3 % (42.0-52.0); HEMOGLOBIN. 8.6 g/dL (14.0-18.0); LYMPHOCYTES % 27.5 % (20.0-50.0); MEAN CORPUSCULAR HEMOGLOBIN 30.3 pg (28.0-32.0); MEAN CORPUSCULAR VOLUME 88.9 fL (80.0-94.0); MEAN PLATELET VOLUME 9.1 fl (7.4-10.4); MONOCYTES % 9.3 % (2.0-8.0); NEUTROPHILS % 62.9 % (40.0-76.0); RED BLOOD CELL COUNT 2.85 mill/uL (4.7-6.1); RED CELL DISTRIBUTION WIDTH 15.6 % (11.6-14.6)
[2016-12-12] MEDS: SODIUM CHLORIDE 0.9% INJ 3ML FLUSH IVF SCH ×3 (06:46→22:29)
[2016-12-12 06:47] LABS: CARBON DIOXIDE 31 mEq/L (21-32); CHLORIDE 102 mEq/L (98-107); LDL CHOLESTEROL 53 mg/dL (5-100)
[2016-12-12] MEDS: ALBUTEROL (0.083%) 2.5MG/3ML NEB HHN SCH ×3 (08:09→15:55)
[2016-12-12] MEDS: AMLODIPINE 5MG TABLET PO SCH (09:00)
[2016-12-12] MEDS: FERROUS SULFATE 325MG TABLET PO SCH (09:00)
[2016-12-12] MEDS: OMEPRAZOLE 20MG CAPSULE EXTENDED RELEASE PO SCH (09:00)
[2016-12-12] MEDS: SUCRALFATE 1 G/10 ML UDC PO SCH ×5 (09:00→21:49)
[2016-12-12] MEDS: FOLIC ACID 1MG TABLET PO SCH ×2 (09:00→10:24)
[2016-12-12] MEDS: PANTOPRAZOLE SODIUM 40 MG/VIAL IV SCH (09:39)
[2016-12-12] MEDS: PHYTONADIONE 10MG/ML AMP SUBCUT SCH (09:39)
[2016-12-12] MEDS: IRON SUCROSE COMPLEX 100 MG/5 ML ML IV SCH (09:40)
[2016-12-12] MEDS: CLONIDINE 0.1MG TABLET PO SCH ×4 (10:24→18:49)
[2016-12-12] MEDS: LEVOFLOXACIN 500MG TABLET PO SCH ×2 (11:00→18:48)
[2016-12-12] MEDS ORDERED: FENTANYL CITRATE/PF 50MCG/ML 2ML VIAL ONE (11:10)
[2016-12-12] MEDS ORDERED: MIDAZOLAM HCL 5 MG/5 ML VIAL ONE (11:11)
[2016-12-12] MEDS: DEXT 5%/0.9% NACL 1,000 ML IV SCH (18:49)
[2016-12-12] MEDS ORDERED: LEVO500T2 PO (19:15)
[2016-12-12] MEDS ORDERED: PANTOPRAZOLE 40MG DR TABLET PO NR (19:15)
[2016-12-12 21:47] LABS: CHLORIDE 103 mEq/L (98-107)
[2016-12-12 21:55] LABS: CARBON DIOXIDE 31 mEq/L (21-32)
[2016-12-12 22:00] LABS: BASOPHILS % 0.2 % (0.0-2.0); EOSINOPHILS % 0.3 % (0.0-5.0); HEMATOCRIT. 25.6 % (42.0-52.0); HEMOGLOBIN. 8.5 g/dL (14.0-18.0); LYMPHOCYTES % 20.8 % (20.0-50.0); MEAN CORPUSCULAR VOLUME 90.4 fL (80.0-94.0); MEAN PLATELET VOLUME 9.8 fl (7.4-10.4); MONOCYTES % 9.1 % (2.0-8.0); NEUTROPHILS % 69.6 % (40.0-76.0); RED BLOOD CELL COUNT 2.84 mill/uL (4.7-6.1); RED CELL DISTRIBUTION WIDTH 15.8 % (11.6-14.6)
[2016-12-12 22:05] LABS: PLATELET 42 x1000/uL (130-400)
[2016-12-12] MEDS: CEFTRIAXONE 1 G PREMIX 50 ML IV SCH (22:06)
[2016-12-13] VITALS: BP 139/77
[2016-12-13 04:00] VITALS: BP 121/65
[2016-12-13] MEDS: SODIUM CHLORIDE 0.9% INJ 3ML FLUSH IVF SCH ×2 (06:27→14:00)
[2016-12-13] MEDS ORDERED: PANTOPRAZOLE 40MG DR TABLET PO SCH (07:20)
[2016-12-13 08:02] VITALS: BP 112/61
[2016-12-13 09:07] LABS: IMMUNOGLOBULIN A 95 mg/dL (61-437); IMMUNOGLOBULIN G 1190 mg/dL (700-1600); IMMUNOGLOBULIN M 54 mg/dL (15-143)
[2016-12-13] MEDS: FERROUS SULFATE 325MG TABLET PO SCH (10:06)
[2016-12-13] MEDS: SUCRALFATE 1 G/10 ML UDC PO SCH ×2 (10:06→15:56)
[2016-12-13] MEDS: FOLIC ACID 1MG TABLET PO SCH (10:06)
[2016-12-13] MEDS: CLONIDINE 0.1MG TABLET PO SCH ×3 (10:06→16:59)
[2016-12-13] MEDS: LEVOFLOXACIN 500MG TABLET PO SCH (10:06)
[2016-12-13] MEDS: IRON SUCROSE COMPLEX 100 MG/5 ML ML IV SCH (10:06)
[2016-12-13] MEDS: AMLODIPINE 5MG TABLET PO SCH (10:06)
[2016-12-13] MEDS: PHYTONADIONE 10MG/ML AMP SUBCUT SCH (10:07)
[2016-12-13] MEDS: DEXT 5%/0.9% NACL 1,000 ML IV SCH (10:20)
[2016-12-13 11:51] VITALS: BP 97/57
[2016-12-13] MEDS: ALBUTEROL (0.083%) 2.5MG/3ML NEB HHN SCH (12:51)
[2016-12-13 16:17] VITALS: BP 97/59
[2016-12-13 16:29] VITALS: BP 97/59
[2016-12-13 19:36] LABS: PLATELET 44 x1000/uL (130-400)
== END 2016-12-13 18:05 | DRG 808 ==
LOC: ER 18:14 → 6WST 21:47 → EDBEDREQ 21:55 → ENRESERV 22:06
PROVIDERS: ADMIT Family Medicine; ATTEND Family Medicine
PROC: 30233N1 Transfusion of Nonautologous Red Blood Cells into Peripheral Vein, Percutaneous Approach (ICD-10-PCS; 2016-12-08)
PROC: 30233L1 Transfusion of Nonautologous Fresh Plasma into Peripheral Vein, Percutaneous Approach (ICD-10-PCS; 2016-12-11)
PROC: 30233K1 Transfusion of Nonautologous Frozen Plasma into Peripheral Vein, Percutaneous Approach (ICD-10-PCS; 2016-12-11)
PROC: 0DB68ZX Excision of Stomach, Via Natural or Artificial Opening Endoscopic, Diagnostic (ICD-10-PCS; principal; 2016-12-13)
DX: D61.818 Other pancytopenia (principal); E43 Unspecified severe protein-calorie malnutrition; J90 Pleural effusion, not elsewhere classified; L89.159 Pressure ulcer of sacral region, unspecified stage; B37.81 Candidal esophagitis; F03.90 Unspecified dementia, unspecified severity, without behavioral disturbance, psychotic disturbance, mood disturbance, and anxiety; C34.92 Malignant neoplasm of unspecified part of left bronchus or lung; N39.0 Urinary tract infection, site not specified; J98.11 Atelectasis; D64.9 Anemia, unspecified; K29.70 Gastritis, unspecified, without bleeding; E27.8 Other specified disorders of adrenal gland; R62.7 Adult failure to thrive; F17.200 Nicotine dependence, unspecified, uncomplicated; K56.41 Fecal impaction; I10 Essential (primary) hypertension; J44.9 Chronic obstructive pulmonary disease, unspecified; K44.9 Diaphragmatic hernia without obstruction or gangrene; Z79.51 Long term (current) use of inhaled steroids; Z79.2 Long term (current) use of antibiotics; Z74.01 Bed confinement status; Z79.899 Other long term (current) drug therapy; Z68.25 Body mass index [BMI] 25.0-25.9, adult
CPT/HCPCS: 36415; 36430; 71010; 71250; 76700; 80048; 80053; 80061; 80305; 81001; 82270; 82378; 82465; 82607; 82746; 82784; 83540; 83550; 83605; 83690; 83721; 83880; 84484; 85014; 85018; 85025; 85027; 85044; 85610; 85730; 86334; 86850; 86900; 86920; 86927; 87040; 87077; 87086; 87186; 88305; 88312; 88313; 93005; 94640; 96361; 96365; 97162; 99152; 99285; A4216; C1893; C9113; J0696; J2250; J3010; J3430; J7030; J7040; J7042; J7050; J7611; P9016; P9017

== ENCOUNTER 2016-12-14 20:53 | Inpatient (IN) | payer MEDICARE, BC ==
[~2016-12-14] VITALS: Ht 180.3 cm; Wt 68.5 kg
[~2016-12-14 20:53] MED LIST changes: -ACET-3161 PO; -FLUC100T42 PO; +LEVO500T2 PO; -[UNRECOGNIZED DRUG - OTHER] PO
[2016-12-14] MEDS ORDERED: SODIUM CHLORIDE 0.9% 1,000 ML IV ONE (21:47)
[2016-12-14] MEDS ORDERED: MORPHINE SULFATE 4 MG/ML CPJ (NOT FOR IM USE) IV STA (21:47)
[2016-12-14] MEDS ORDERED: ONDANSETRON HCL 4MG/2ML VIAL IV STA (21:47)
[2016-12-14] MEDS ORDERED: VANCOMYCIN 1 G PREMIX 200 ML IV ONE (22:00)
[2016-12-14] MEDS ORDERED: PIPERACILLIN/TAZ 3.375G PREMIX 50 ML IV ONE (22:00)
[2016-12-14 23:06] LABS: CLARITY URINE TURBID (CLEAR); COLOR URINE ORANGE (YELLOW); GLUCOSE URINE NEGATIVE (NEGATIVE); KETONES URINE NEGATIVE (NEGATIVE); LEUKOCYTE ESTERASE URINE 2+ (NEGATIVE); NITRITE URINE POSITIVE (NEGATIVE); OCCULT BLOOD URINE 1+ (NEGATIVE); PH URINE 5.5 (4.5-8.0); PROTEIN URINE 1+ (NEGATIVE); SPECIFIC GRAVITY URINE 1.028 (1.005-1.030)
[2016-12-14 23:16] LABS: HEMATOCRIT. 23.3 % (42.0-52.0); HEMOGLOBIN. 7.8 g/dL (14.0-18.0); MEAN CORPUSCULAR HEMOGLOBIN 30.3 pg (28.0-32.0); MEAN CORPUSCULAR VOLUME 90.3 fL (80.0-94.0); MEAN PLATELET VOLUME 10.3 fl (7.4-10.4); RED BLOOD CELL COUNT 2.58 mill/uL (4.7-6.1); RED CELL DISTRIBUTION WIDTH 15.9 % (11.6-14.6)
[2016-12-14 23:20] LABS: CHLORIDE 105 mEq/L (98-107); PLATELET 23 x1000/uL (130-400)
[2016-12-14 23:27] LABS: CARBON DIOXIDE 31 mEq/L (21-32)
[2016-12-14 23:30] LABS: TROPONIN I < 0.02 ng/mL (0.00-0.04)
[2016-12-14 23:39] LABS: INR 1.4; PROTHROMBIN TIME 14.7 sec (9.4-11.6)
[2016-12-15] VITALS (12 sets, daily range): BP systolic 93–124; BP diastolic 56–76
[2016-12-15 00:45] LABS: PLATELET ESTIMATE MARKEDLY DECREASED
[2016-12-15] MEDS ORDERED: CLONIDINE 0.1MG TABLET PO PRN (11:15)
[2016-12-15] MEDS ORDERED: ACETAMINOPHEN 325MG TABLET PO PRN (11:15)
[2016-12-15] MEDS ORDERED: AMLO5TAB4 PO (11:18)
[2016-12-15] MEDS ORDERED: LORA0.5T2 PO (11:18)
[2016-12-15] MEDS ORDERED: PHYTONADIONE PO (11:18)
[2016-12-15] MEDS ORDERED: POTA10CA42 PO (11:18)
[2016-12-15] MEDS ORDERED: MULT-1146 PO (11:19)
[2016-12-15] MEDS ORDERED: ASCO500C6 PO (11:19)
[2016-12-15] MEDS ORDERED: ZINC SULFATE PO (11:19)
[2016-12-15] MEDS: FERROUS SULFATE 325MG TABLET PO SCH (11:59)
[2016-12-15] MEDS: OMEPRAZOLE 20MG CAPSULE EXTENDED RELEASE PO SCH (11:59)
[2016-12-15] MEDS: ZINC SULFATE 220 MG ( 50 ) CAPSULE PO SCH (12:01)
[2016-12-15] MEDS: ASCORBIC ACID 500 MG TABLET PO SCH (13:44)
[2016-12-15] MEDS ORDERED: PIPERACILLIN/TAZ 2.25G PREMIX 50 ML IV SCH (20:45)
[2016-12-15 21:53] LABS: BASOPHILS % 0.3 % (0.0-2.0); EOSINOPHILS % 0.1 % (0.0-5.0); HEMOGLOBIN. 9.1 g/dL (14.0-18.0); LYMPHOCYTES % 22.9 % (20.0-50.0); MEAN CORPUSCULAR HEMOGLOBIN 30.2 pg (28.0-32.0); MEAN CORPUSCULAR VOLUME 89.7 fL (80.0-94.0); MEAN PLATELET VOLUME 8.9 fl (7.4-10.4); MONOCYTES % 9.9 % (2.0-8.0); NEUTROPHILS % 66.8 % (40.0-76.0); PLATELET 61 x1000/uL (130-400); RED BLOOD CELL COUNT 3.01 mill/uL (4.7-6.1)
[2016-12-15] MEDS ORDERED: LEVOFLOXACIN 500MG PREMIX 100 ML IV SCH (22:00)
[2016-12-15 22:14] LABS: CARBON DIOXIDE 31 mEq/L (21-32); CHLORIDE 106 mEq/L (98-107)
[2016-12-15] MEDS ORDERED: PHYTONADIONE 5MG TABLET PO NR (23:00)
[2016-12-16] VITALS (7 sets, daily range): BP systolic 103–126; BP diastolic 59–75
[2016-12-16] MEDS ORDERED: POTASSIUM CHLORIDE 20MEQ/PACKET PO NR
[2016-12-16] MEDS: PIPERACILLIN/TAZ 3.375G PREMIX 50 ML IV SCH ×5 (00:15→23:25)
[2016-12-16] MEDS: LEVOFLOXACIN 500MG PREMIX 100 ML IV SCH (00:56)
[2016-12-16 07:33] LABS: BASOPHILS % 0.2 % (0.0-2.0); EOSINOPHILS % 0.1 % (0.0-5.0); HEMATOCRIT. 28.2 % (42.0-52.0); HEMOGLOBIN. 9.5 g/dL (14.0-18.0); LYMPHOCYTES % 28.1 % (20.0-50.0); MEAN CORPUSCULAR HEMOGLOBIN 29.5 pg (28.0-32.0); MEAN CORPUSCULAR VOLUME 88.1 fL (80.0-94.0); MEAN PLATELET VOLUME 9.6 fl (7.4-10.4); MONOCYTES % 9.6 % (2.0-8.0); RED CELL DISTRIBUTION WIDTH 17.2 % (11.6-14.6)
[2016-12-16 08:06] LABS: CARBON DIOXIDE 32 mEq/L (21-32); CHLORIDE 106 mEq/L (98-107)
[2016-12-16] MEDS ORDERED: ASCORBIC ACID 500 MG PO SCH (09:00)
[2016-12-16] MEDS ORDERED: ZINC SULFATE 220 MG PO SCH (09:00)
[2016-12-16 09:28] LABS: PLATELET 38 x1000/uL (130-400)
[2016-12-16] MEDS: MULTIVITAMINS,THER W-MINERALS TABLET PO SCH (09:37)
[2016-12-16] MEDS: ASCORBIC ACID 500 MG TABLET PO SCH (09:37)
[2016-12-16] MEDS: OMEPRAZOLE 20MG CAPSULE EXTENDED RELEASE PO SCH (09:37)
[2016-12-16] MEDS: ZINC SULFATE 220 MG ( 50 ) CAPSULE PO SCH (09:37)
[2016-12-16] MEDS: FERROUS SULFATE 325MG TABLET PO SCH (09:37)
[2016-12-16] MEDS: AMLODIPINE 5MG TABLET PO SCH (09:37)
[2016-12-16] MEDS ORDERED: POTASSIUM CHLORIDE 20MEQ TABLET SR PO NR (10:52)
[2016-12-17] VITALS: BP 114/68
[2016-12-17] MEDS: LEVOFLOXACIN 500MG PREMIX 100 ML IV SCH (00:43)
[2016-12-17 04:00] VITALS: BP 121/65
[2016-12-17] MEDS: PIPERACILLIN/TAZ 3.375G PREMIX 50 ML IV SCH ×2 (05:14→13:22)
[2016-12-17 08:00] VITALS: BP 111/66
[2016-12-17] MEDS: AMLODIPINE 5MG TABLET PO SCH (09:04)
[2016-12-17] MEDS: ASCORBIC ACID 500 MG TABLET PO SCH (09:04)
[2016-12-17] MEDS: FERROUS SULFATE 325MG TABLET PO SCH (09:05)
[2016-12-17] MEDS: MULTIVITAMINS,THER W-MINERALS TABLET PO SCH (09:05)
[2016-12-17] MEDS: OMEPRAZOLE 20MG CAPSULE EXTENDED RELEASE PO SCH (09:05)
[2016-12-17] MEDS: ZINC SULFATE 220 MG ( 50 ) CAPSULE PO SCH (09:05)
[2016-12-17] MEDS ORDERED: POTASSIUM CHLORIDE 20MEQ TABLET SR PO NR (10:30)
[2016-12-17] MEDS ORDERED: SODIUM CHLORIDE 0.9% 250 ML IV NR (10:30)
[2016-12-17] MEDS ORDERED: DIGOXIN 500MCG/2ML AMP IV SCH (11:08)
[2016-12-17 12:00] VITALS: BP 91/41
[2016-12-17] MEDS: METRONIDAZOLE 500MG TABLET PO SCH ×2 (15:09→21:31)
[2016-12-17 16:00] VITALS: BP 86/54
[2016-12-17 20:00] VITALS: BP 89/51
[2016-12-17] MEDS ORDERED: LEVOFLOXACIN 750MG PREMIX 150 ML IV SCH (21:00)
[2016-12-18] MEDS: IPRATROPIUM/ALBUTEROL 0.5-3(2.5)MG/3ML NEB HHN SCH ×4 (00:30→21:11)
[2016-12-18 00:40] VITALS: BP 86/51
[2016-12-18 04:00] VITALS: BP 104/56
[2016-12-18] MEDS: METRONIDAZOLE 500MG TABLET PO SCH ×3 (05:24→20:39)
[2016-12-18] MEDS: MULTIVITAMINS,THER W-MINERALS TABLET PO SCH (08:36)
[2016-12-18] MEDS: FERROUS SULFATE 325MG TABLET PO SCH (08:36)
[2016-12-18] MEDS: ZINC SULFATE 220 MG ( 50 ) CAPSULE PO SCH (08:36)
[2016-12-18] MEDS: AMLODIPINE 5MG TABLET PO SCH (08:37)
[2016-12-18] MEDS: ASCORBIC ACID 500 MG TABLET PO SCH (08:37)
[2016-12-18] MEDS: OMEPRAZOLE 20MG CAPSULE EXTENDED RELEASE PO SCH (08:37)
[2016-12-18 12:00] VITALS: BP 121/95
[2016-12-18] MEDS: FLUCONAZOLE 400MG/200ML BAG 200 ML IV SCH (14:00)
[2016-12-18 16:00] VITALS: BP_SYST 111; BP_SYST 90; BP_DIAS 55; BP_DIAS 57
[2016-12-18 20:00] VITALS: BP 96/55
[2016-12-19] VITALS: BP 111/67
[2016-12-19] MEDS: IPRATROPIUM/ALBUTEROL 0.5-3(2.5)MG/3ML NEB HHN SCH ×2 (01:40→20:35)
[2016-12-19 04:00] VITALS: BP 116/65
[2016-12-19] MEDS: METRONIDAZOLE 500MG TABLET PO SCH ×3 (06:27→20:52)
[2016-12-19 07:07] LABS: CARBON DIOXIDE 33 mEq/L (21-32); CHLORIDE 105 mEq/L (98-107)
[2016-12-19 08:00] VITALS: BP 109/62
[2016-12-19] MEDS ORDERED: POTASSIUM CHLORIDE 20MEQ/PACKET PO SCH (08:30)
[2016-12-19] MEDS: ASCORBIC ACID 500 MG TABLET PO SCH (08:54)
[2016-12-19] MEDS: OMEPRAZOLE 20MG CAPSULE EXTENDED RELEASE PO SCH (08:54)
[2016-12-19] MEDS: FERROUS SULFATE 325MG TABLET PO SCH (08:54)
[2016-12-19] MEDS: ZINC SULFATE 220 MG ( 50 ) CAPSULE PO SCH (08:54)
[2016-12-19] MEDS: MULTIVITAMINS,THER W-MINERALS TABLET PO SCH (08:54)
[2016-12-19] MEDS: AMLODIPINE 5MG TABLET PO SCH (08:55)
[2016-12-19 12:00] VITALS: BP 139/67
[2016-12-19] MEDS: FLUCONAZOLE 400MG/200ML BAG 200 ML IV SCH ×2 (14:00→15:29)
[2016-12-19 16:00] VITALS: BP 103/63
[2016-12-19] MEDS: FLUCONAZOLE 200MG TABLET PO SCH (18:48)
[2016-12-19 20:00] VITALS: BP 151/82
[2016-12-19] MEDS ORDERED: LEVOFLOXACIN 250MG TABLET PO SCH (21:00)
[2016-12-20] VITALS: BP 110/74
[2016-12-20] MEDS: IPRATROPIUM/ALBUTEROL 0.5-3(2.5)MG/3ML NEB HHN SCH ×3 (03:02→20:43)
[2016-12-20 04:00] VITALS: BP 130/74
[2016-12-20] MEDS: METRONIDAZOLE 500MG TABLET PO SCH ×3 (05:40→22:00)
[2016-12-20 08:00] VITALS: BP 149/75
[2016-12-20] MEDS: MULTIVITAMINS,THER W-MINERALS TABLET PO SCH (09:15)
[2016-12-20] MEDS: ASCORBIC ACID 500 MG TABLET PO SCH (09:15)
[2016-12-20] MEDS: OMEPRAZOLE 20MG CAPSULE EXTENDED RELEASE PO SCH (09:15)
[2016-12-20] MEDS: FERROUS SULFATE 325MG TABLET PO SCH (09:15)
[2016-12-20] MEDS: AMLODIPINE 5MG TABLET PO SCH (09:15)
[2016-12-20] MEDS: FLUCONAZOLE 200MG TABLET PO SCH (09:15)
[2016-12-20] MEDS: ZINC SULFATE 220 MG ( 50 ) CAPSULE PO SCH (09:34)
[2016-12-20 12:00] VITALS: BP 112/67
[2016-12-20 16:00] VITALS: BP 107/48
[2016-12-20 20:00] VITALS: BP 104/53
[2016-12-21] VITALS: BP 99/52
[2016-12-21] MEDS: IPRATROPIUM/ALBUTEROL 0.5-3(2.5)MG/3ML NEB HHN SCH ×2 (01:46→08:11)
[2016-12-21 04:00] VITALS: BP 89/46
[2016-12-21] MEDS: METRONIDAZOLE 500MG TABLET PO SCH (06:36)
[2016-12-21 08:00] VITALS: BP 132/71
[2016-12-21] MEDS: FLUCONAZOLE 200MG TABLET PO SCH (09:20)
[2016-12-21] MEDS: ZINC SULFATE 220 MG ( 50 ) CAPSULE PO SCH (09:20)
[2016-12-21] MEDS: ASCORBIC ACID 500 MG TABLET PO SCH (09:20)
[2016-12-21] MEDS: OMEPRAZOLE 20MG CAPSULE EXTENDED RELEASE PO SCH (09:21)
[2016-12-21] MEDS: AMLODIPINE 5MG TABLET PO SCH (09:21)
[2016-12-21] MEDS: FERROUS SULFATE 325MG TABLET PO SCH (09:21)
[2016-12-21] MEDS: MULTIVITAMINS,THER W-MINERALS TABLET PO SCH (09:21)
[2016-12-21 10:43] VITALS: BP 132/71
== END 2016-12-21 11:35 | disposition hospice, home (50) | DRG 871 ==
LOC: ER 21:01 → 7WST 12-15 00:56 → EDBEDREQ 12-15 01:01 → ENRESERV 12-15 07:05
PROVIDERS: ADMIT Family Medicine; ATTEND Family Medicine
PROC: 30233R1 Transfusion of Nonautologous Platelets into Peripheral Vein, Percutaneous Approach (ICD-10-PCS; principal; 2016-12-15)
PROC: 30233N1 Transfusion of Nonautologous Red Blood Cells into Peripheral Vein, Percutaneous Approach (ICD-10-PCS; 2016-12-15)
DX: A41.9 Sepsis, unspecified organism (principal); J18.9 Pneumonia, unspecified organism; J96.00 Acute respiratory failure, unspecified whether with hypoxia or hypercapnia; E43 Unspecified severe protein-calorie malnutrition; J90 Pleural effusion, not elsewhere classified; D68.9 Coagulation defect, unspecified; L89.159 Pressure ulcer of sacral region, unspecified stage; J44.0 Chronic obstructive pulmonary disease with (acute) lower respiratory infection; R64 Cachexia; F03.90 Unspecified dementia, unspecified severity, without behavioral disturbance, psychotic disturbance, mood disturbance, and anxiety; C34.90 Malignant neoplasm of unspecified part of unspecified bronchus or lung; N30.01 Acute cystitis with hematuria; L02.211 Cutaneous abscess of abdominal wall; Z66 Do not resuscitate; E87.70 Fluid overload, unspecified; Z74.01 Bed confinement status; D69.6 Thrombocytopenia, unspecified; Z51.5 Encounter for palliative care; Z85.72 Personal history of non-Hodgkin lymphomas; D64.9 Anemia, unspecified; E11.9 Type 2 diabetes mellitus without complications; E87.6 Hypokalemia; E61.1 Iron deficiency; I10 Essential (primary) hypertension; K56.41 Fecal impaction; Z87.891 Personal history of nicotine dependence; Z79.899 Other long term (current) drug therapy; Z68.21 Body mass index [BMI] 21.0-21.9, adult
CPT/HCPCS: 36415; 51702; 71010; 74176; 76705; 80048; 80053; 81001; 82962; 83605; 83690; 83880; 84484; 85025; 85384; 85610; 86850; 86900; 86920; 86945; 87040; 87086; 93005; 93970; 94640; 96365; 96366; 96368; 97162; 99285; A6261; J1160; J1450; J1956; J2270; J2405; J2543; J3370; J7030; J7040; J7050; J7620; P9016; P9034